=== PATIENT | male | born 1975 | race Caucasian/White ===

== ENCOUNTER 2017-08-01 22:22 | Emergency (ER) | payer SELFPAY ==
[~2017-08-01] VITALS: Ht 167.6 cm; Wt 93.4 kg
[2017-08-01 22:28] VITALS: BP 153/91
--- NOTE | 2017-08-02 00:34 | NUR ---
PATIENT PRESENTS TO ED WITH C/O NOSEBLEED SINCE 3PM - HAD 3 EPISODES. HX OF ASTHMA PT DENIES N/V/D; SKIN IS PINK/WARM/DRY; AAOX4 WITH EVEN AND STEADY GAIT; LUNGS CLEAR BL; HR EVEN AND REGULAR; PT DENIES ANY FEVER, CP, SOB, OR COUGH AT THIS TIME; PATIENT STATES PAIN OF 0/10 AT THIS TIME; VSS; PATIENT POSITIONED FOR COMFORT; HOB ELEVATED; BEDRAILS UP X2; BED DOWN. ER MD MADE AWARE OF PT STATUS.
[2017-08-02] MEDS ORDERED: ENALAPRIL 5 MG TAB PO ONE (00:50)
--- NOTE | 2017-08-02 01:25 | NUR ---
Patient appears to be resting comfortably in bed. Vital Signs within normal limits. Respirations even and unlabored.
[2017-08-02 01:45] VITALS: BP 122/88
== END 2017-08-02 01:42 | disposition home or self-care (01) ==
LOC: MED 22:22
DX: R04.0 Epistaxis (principal); I10 Essential (primary) hypertension; Z88.0 Allergy status to penicillin